=== PATIENT | male | born 1975 | race Caucasian/White ===

== ENCOUNTER 2021-04-18 10:22 | Outpatient (REF) | payer OTHER, SELFPAY ==
[2021-04-18 10:27] LABS: MANUAL DIFF FLAG NO
[2021-04-18 10:43] LABS: Basophils Percent Auto 0.5 % (0-2); Eosinophils Absolute Auto 0.1 X10*3/uL (0.0-0.4); Eosinophils Percent Auto 2.1 % (0-4); Hematocrit 41.9 % (42-52); Hemoglobin 14.5 g/dl (14.0-18.0); Imm Gran Abs Auto 0.03 X10*3/uL (0.00-0.03); Imm Gran Pct Auto 0.5 % (0.0-0.4); Lymphocytes Absolute Auto 1.9 X10*3/uL (1.2-4.9); Lymphocytes Percent Auto 31.2 % (20-40); Mean Corpuscular HGB Conc 34.6 g/dl (31.0-36.0); Mean Corpuscular Hemoglobin 32.2 pg (27.0-33.0); Mean Corpuscular Volume 93.1 fL (80-98); Mean Platelet Volume 9.8 fL (9.4-12.4); Monocytes Absolute Auto 0.6 X10*3/uL (0.1-1.2); Monocytes Percent Auto 9.6 % (2-11); Neutrophils Absolute Auto 3.4 X10*3/uL (2.0-8.3); Neutrophils Percent Auto 56.1 % (45-73); Platelet Count 222 X10*3/uL (160-400); White Blood Count 6.1 X10*3/uL (4.8-10.8)
[2021-04-18 10:59] LABS: Glucose Urine UA NEG (NEG); Leukocyte Esterase Urine NEG (NEG); Nitrite Urine NEG (NEG); Urine Blood NEG (NEG); Urine Ketones NEG (NEG); Urine Protein NEG (NEG-TRACE)
[2021-04-18 11:12] LABS: Appearance Urine CLEAR; Color Urine YELLOW
[2021-04-18 12:01] LABS: Alanine Aminotransferase 18 U/L (0-40); Albumin Level 4.2 g/dL (3.5-5.0); Alkaline Phosphatase 57 U/L (39-117); Anion Gap 13 (12-20); Aspartate Amino Transferase 22 U/L (5-37); Bilirubin Total 1.3 mg/dL (0.0-1.0); Blood Urea Nitrogen 9 mg/dL (9-16); Calcium 9.3 mg/dL (8.4-10.2); Carbon Dioxide 27 mmol/L (22-29); Chloride 104 mmol/L (96-108); Cholesterol 226 mg/dL; Estimated Glomerular Filt Rate > 60; Glucose Fasting 81 mg/dL (60-99); HDL Cholesterol 90 mg/dL; LDL Cholesterol Calculated 105 mg/dl; Potassium 3.7 mmol/L (3.3-5.1); Sodium 140 mmol/L (135-145); Total Protein 7.5 g/dL (6.5-8.0); Triglycerides 155 mg/dL
[2021-04-18 12:22] LABS: PSA,Total (Free>4and<10) 0.58 ng/mL (0.00-4.00)
== END 2021-04-18 10:23 | disposition home or self-care (01) ==
LOC: HO.LNP 10:22
PROVIDERS: Visit Provider Internal Medicine
DX: Z00.00 Encounter for general adult medical examination without abnormal findings (principal); E78.00 Pure hypercholesterolemia, unspecified; F90.2 Attention-deficit hyperactivity disorder, combined type; Z12.5 Encounter for screening for malignant neoplasm of prostate
CPT/HCPCS: 80053; 80061; 81003; 84153; 85025

== ENCOUNTER 2021-06-12 12:42 | Day surgery (SDC) | payer OTHER, SELFPAY ==
--- NOTE | 2021-06-11 14:07 | HO.ANESPROP2 ---
HPI - Anesthesia Eval Consult details Narrative: 45yo M for Colonoscopy FORMERLY [facility] Past Medical History Medical History Irregular heart beat Surgical History Surgical History H/O bilateral inguinal hernia repair H/O wisdom tooth extraction Hx of tympanostomy tubes Social History Social History Patient Tobacco Use Status: Former Tobacco user Use of substances other than those prescribed or required for medical reasons: No Are you DNR?: No Advance Directives: No Advance Directives Information Provided: Yes Meds Allergies Allergy/AdvReac Type Severity Reaction Status Date / Time No Known Allergies Allergy Verified 06/12/21 13:21 Exam Exam Date and Time: June 11, 2021 1407 Pertinent Lab Results Pertinent Lab Results: Laboratory Tests 04/18/21 04/18/21 07:20 07:20 WBC 6.1 Hgb 14.5 Hct 41.9 L Plt Count 222 Sodium 140 Potassium 3.7 Chloride 104 Carbon Dioxide 27 BUN 9 Creatinine 0.99 Assessment and Plan Assessment Anesthesia Assessment: Chart Reviewed
[2021-06-12 13:16] VITALS: BP 123/77; PULSE 86; RESP 20; TEMP 36.7; BMI 26.6
[2021-06-12] MEDS: Lactated Ringers 1,000 ML 100 ML IVCONT (13:28)
--- NOTE | 2021-06-12 13:52 | MHC.SHP ---
Pre-Procedural Eval Section A Date of Service: 06/12/21 The patient is an INPATIENT: No Changes since office visit: No Cold of Flu in the past 2 weeks, No New Medical Problems, No Changes in Medication and No Patient answered all questions The History & Physical has been completed within 30 days and I have reviewed it.: Yes Section B Chief Complaint: change in bowel Allergies: Allergies Allergy/AdvReac Type Severity Reaction Status Date / Time No Known Allergies Allergy Verified 06/12/21 13:21 Plan I have reviewed the history and physical and performed a pertinent physical examination on my patient. No changes have occurred unless specified.
--- NOTE | 2021-06-12 14:16 | P.BOP_ITS ---
Brief Operative Note Date of Service: 06/12/21 Pre-op diagnosis: abnormal findings in stool Post-op diagnosis: same Procedure: colonoscopy Surgeon: Erwin Pichardo Anesthesia: MAC Was an Mechanical Applications Engineer used for this Procedure?: No Estimated blood loss (mL): 2 Pathology: other (sigmoid biopsies) Condition: stable Disposition: PACU
[2021-06-12 14:18] VITALS: BP 87/52; PULSE 74; RESP 18; TEMP 36.2; O2SAT 97
[2021-06-12 14:33] VITALS: BP 95/59; PULSE 66; RESP 18; O2SAT 97
[2021-06-12 14:48] VITALS: BP 97/69; PULSE 63; RESP 18; TEMP 36.2; O2SAT 99
--- NOTE | 2021-06-14 18:55 | OP_ITS ---
SURGEON: Erwin Pichardo MD INDICATIONS: Abnormal findings in stool and change in bowel habits. PREOPERATIVE DIAGNOSIS: POSTOPERATIVE DIAGNOSIS: PROCEDURE PERFORMED: Colonoscopy to the terminal ileum with biopsy. ESTIMATED BLOOD LOSS: COMPLICATIONS: ANESTHESIA: ASSISTANTS: SPECIMENS: MEDICATIONS: Monitored anesthesia care. DESCRIPTION OF PROCEDURE: History and physical performed. The risks and benefits of the procedure were explained to the patient. Informed consent was obtained. The patient was placed in the left lateral decubitus position. A digital rectal exam was performed and was found to be normal. The Olympus pediatric video colonoscope was introduced into the rectum and advanced to the cecum without difficulty. The cecum was identified by transillumination, palpation, and identification of ileocecal valve. Examination was performed and the scope was removed. He tolerated the procedure well and was taken to recovery area in stable condition. FINDINGS: The terminal ileum was examined and appeared normal. The visualized colonic mucosa was normal. The quality of the prep was good. No polyps were identified. Retroflexed examination showed small internal hemorrhoids. Random sigmoid biopsies were obtained to evaluate for any evidence of microscopic colitis. IMPRESSION: Normal colonoscopy. RECOMMENDATIONS: 1. Follow up the biopsy results. 2. Repeat colonoscopy is recommended in 10 years for average risk individuals. MD ELODIA Lebron/OLIMPIA / [id number]
== END 2021-06-12 15:18 | disposition home or self-care (01) ==
PROVIDERS: PCP Internal Medicine; Visit Provider Internal Medicine Gastroenterology
PROC: 0DJD8ZZ Inspection of Lower Intestinal Tract, Via Natural or Artificial Opening Endoscopic (ICD-10-PCS; CPT 45378; principal; 2021-06-12 13:50)
DX: R19.5 Other fecal abnormalities (principal); R19.4 Change in bowel habit; K64.8 Other hemorrhoids; Z79.82 Long term (current) use of aspirin
CPT/HCPCS: 45380; 88305

== ENCOUNTER 2022-04-17 11:03 | Outpatient (REF) | payer OTHER, SELFPAY ==
[2022-04-17 11:09] LABS: MANUAL DIFF FLAG NO
[2022-04-17 11:20] LABS: Basophils Percent Auto 0.9 % (0-2); Eosinophils Absolute Auto 0.1 X10*3/uL (0.0-0.4); Eosinophils Percent Auto 2.6 % (0-4); Hematocrit 40.6 % (42.0-52.0); Hemoglobin 14.1 g/dl (14.0-18.0); Imm Gran Abs Auto 0.03 X10*3/uL (0.00-0.03); Imm Gran Pct Auto 0.6 % (0.0-0.4); Lymphocytes Absolute Auto 1.7 X10*3/uL (1.2-4.9); Lymphocytes Percent Auto 37.4 % (20-40); Mean Corpuscular HGB Conc 34.7 g/dl (31.0-36.0); Mean Corpuscular Volume 92.1 fL (80.0-98.0); Monocytes Absolute Auto 0.6 X10*3/uL (0.1-1.2); Monocytes Percent Auto 11.9 % (2-11); Neutrophils Absolute Auto 2.2 x10*3/uL (2.0-8.3); Neutrophils Percent Auto 46.6 % (45-73); Platelet Count 208 X10*3/uL (160-400); Red Blood Count 4.41 X10*6/uL (4.60-5.80); Red Cell Distribution Width 12.3 % (11.0-16.0); White Blood Count 4.6 X10*3/uL (4.8-10.8)
[2022-04-17 11:22] LABS: Appearance Urine CLEAR; Color Urine YELLOW; Glucose Urine UA NEG (NEG); Leukocyte Esterase Urine NEG (NEG); Nitrite Urine NEG (NEG); Urine Blood NEG (NEG); Urine Ketones NEG (NEG); Urine Protein NEG (NEG-TRACE)
[2022-04-17 11:38] LABS: Alanine Aminotransferase 19 U/L (0-40); Albumin Level 4.4 g/dL (3.5-5.0); Alkaline Phosphatase 59 U/L (39-117); Anion Gap 13 (12-20); Aspartate Amino Transferase 20 U/L (5-37); Bilirubin Total 0.8 mg/dL (0.0-1.0); Blood Urea Nitrogen 16 mg/dL (9-16); Calcium 8.7 mg/dL (8.4-10.2); Carbon Dioxide 26 mmol/L (22-29); Chloride 106 mmol/L (96-108); Cholesterol 210 mg/dL; Estimated Glomerular Filt Rate > 60; Glucose Fasting 88 mg/dL (60-99); HDL Cholesterol 70 mg/dL; LDL Cholesterol Calculated 130 mg/dl; Potassium 4.5 mmol/L (3.3-5.1); Sodium 140 mmol/L (135-145); Total Protein 7.4 g/dL (6.5-8.0); Triglycerides 53 mg/dL
[2022-04-17 12:00] LABS: PSA,Total (Free>4and<10) 0.59 ng/mL (0.00-4.00)
[2022-04-17 12:27] LABS: RBC Urine 0-2 /HPF (0); WBC Urine 0-2 /HPF (0-4)
[2022-04-17 12:28] LABS: Bacteria Urine TRACE /LPF
== END 2022-04-17 11:04 | disposition home or self-care (01) ==
LOC: HO.LNP 11:03
PROVIDERS: Visit Provider Internal Medicine
DX: Z00.00 Encounter for general adult medical examination without abnormal findings (principal); Z12.5 Encounter for screening for malignant neoplasm of prostate; E78.00 Pure hypercholesterolemia, unspecified
CPT/HCPCS: 80053; 80061; 81001; 84153; 85025

== ENCOUNTER 2023-04-23 11:36 | Outpatient (REF) | payer OTHER, SELFPAY ==
[2023-04-23 11:44] LABS: MANUAL DIFF FLAG NO
[2023-04-23 12:23] LABS: Basophils Percent Auto 0.7 % (0-2); Eosinophils Absolute Auto 0.1 X10*3/uL (0.0-0.4); Eosinophils Percent Auto 2.4 % (0-4); Hematocrit 42.6 % (42.0-52.0); Hemoglobin 14.6 g/dl (14.0-18.0); Imm Gran Abs Auto 0.04 X10*3/uL (0.00-0.03); Imm Gran Pct Auto 0.7 % (0.0-0.4); Lymphocytes Absolute Auto 2.2 X10*3/uL (1.2-4.9); Lymphocytes Percent Auto 38.9 % (20-40); Mean Corpuscular HGB Conc 34.3 g/dl (31.0-36.0); Mean Corpuscular Hemoglobin 31.6 pg (27.0-33.0); Mean Corpuscular Volume 92.2 fL (80.0-98.0); Monocytes Absolute Auto 0.6 X10*3/uL (0.1-1.2); Neutrophils Absolute Auto 2.6 x10*3/uL (2.0-8.3); Neutrophils Percent Auto 47.3 % (45-73); Platelet Count 222 X10*3/uL (160-400); Red Blood Count 4.62 X10*6/uL (4.60-5.80); Red Cell Distribution Width 12.3 % (11.0-16.0); White Blood Count 5.5 X10*3/uL (4.8-10.8)
[2023-04-23 12:26] LABS: Appearance Urine Clear; Color Urine Yellow; Glucose Urine UA Negative (Negative); Leukocyte Esterase Urine Negative (Negative); Nitrite Urine Negative (Negative); PH 5.5 (5.0-9.0); Urine Blood Negative (Negative); Urine Ketones Negative (Negative); Urine Protein Negative (Neg-Trace)
[2023-04-23 12:28] LABS: Bacteria Urine None Seen (None Seen); Hyaline Casts Urine 0-2 /LPF (0-2); RBC Urine 0-2 /HPF (0-2); Squamous Epithelial Cell Urine 0-2 /HPF (0-2); WBC Urine 0-5 /HPF (0-5)
[2023-04-23 15:35] LABS: PSA,Total (Free>4and<10) 0.52 ng/mL (0.00-4.00)
[2023-04-23 21:28] LABS: Alanine Aminotransferase 17 U/L (0-40); Albumin Level 4.2 g/dL (3.5-5.0); Alkaline Phosphatase 53 U/L (39-117); Anion Gap 17 (12-20); Aspartate Amino Transferase 20 U/L (5-37); Bilirubin Total 0.8 mg/dL (0.0-1.0); Blood Urea Nitrogen 14 mg/dL (9-16); Calcium 9.6 mg/dL (8.4-10.2); Carbon Dioxide 25 mmol/L (22-29); Chloride 104 mmol/L (96-108); Cholesterol 212 mg/dL; Estimated Glomerular Filt Rate > 60; Glucose Fasting 81 mg/dL (60-99); HDL Cholesterol 67 mg/dL; LDL Cholesterol Calculated 130 mg/dl; Potassium 4.1 mmol/L (3.3-5.1); Sodium 142 mmol/L (135-145); Total Protein 7.2 g/dL (6.5-8.0); Triglycerides 78 mg/dL
== END 2023-04-23 11:37 | disposition home or self-care (01) ==
LOC: HO.LNP 11:36
PROVIDERS: Visit Provider Internal Medicine
DX: Z00.00 Encounter for general adult medical examination without abnormal findings (principal); E78.00 Pure hypercholesterolemia, unspecified; Z12.5 Encounter for screening for malignant neoplasm of prostate
CPT/HCPCS: 80053; 80061; 81001; 84153; 85025

== ENCOUNTER 2025-04-21 09:52 | Outpatient (REF) | payer OTHER, SELFPAY ==
--- OUTSIDE RECORDS SUMMARY | 2024-04-26 04:45 | XMS_ITS ---
Author Organization Nghia Salazar MD Address [address] [place] [phone] Care Team Providers Care Reading Teacher Name Role Phone Nghia Salazar Primary Care Provider [phone] Allergies No Known Allergies REASON FOR VISIT [...] Location Date Provider Diagnosis Nghia Salazar MD [address] [place] [address] Drive [address] [place] [phone] 04/26/2024 Nghia Salazar Insect bite (nonvenomous) of [...] site Next Appt Details Provider Name:Nghia boston, 04/27/2025 03:30:00 PM, [address] [place] [address] Drive, [address], [place], [place], [phone], Progress Notes * David GALINDO ADOB: 6 (48 yo M)Acc No.[id number]:04/26/2024 Patient: David Robertson Provider: Noris Salazar MD :1975 A ge:48 Y S ex:Male Date:04/26/2024 Address:[address] [place] [address], [id number] Subjective: * Chief Complaints: * ? tick [...] 0 04/26/2024 Generated for Priyanka downs/Anurag/Roxaneitting on: 0 04/21/2025 10:06 AM EDT History and Physical Notes * [...]
[2025-04-21 09:55] LABS: MANUAL DIFF FLAG NO
--- OUTSIDE RECORDS SUMMARY | 2025-04-21 10:06 | XMS_ITS | Referral Summary ---
Author Organization [facility] Address [address] [place] [address] Care Team Providers Care Auditor/Quality Name Role Phone Nghia Salazar Primary Care Provider [phone] Allergies No known active allergies Medications No known medications Active Problems Problem Noted Date Diagnosed Date Abnormal feces 06/19/2022 Change in bowel habit 06/19/2022 Left groin pain 08/27/2020 Assessment & Plan (04/14/2023 11:08 AM EDT): Abdomen is still having some left groin pain. His symptoms are mostly with lifting. He is good to cut back on the Aleve as he has done faithfully for 3 weeks now. He can use it every other day and then as needed. He should still do ice packs to the area if that helps with some of the symptoms. We would like him to try a course of physical therapy it has been 3 years since his last sessions of physical therapy. We will focus on core strengthening and mobility. We will try that for 6 or 8 weeks and then have him come back into clinic to visit with Dr. Chong in person for an exam. David and Dr. Chong are in agreement with this plan all of his questions were answered today. Assessment & Plan (03/17/2023 1:11 PM EDT): Abdomen is developed a recrudescence of some left groin pain. He was seen and examined by both myself and Dr. Chong today. Dr. Chong personally reviewed the MRI that was done and we will scan and a copy of that report. Dr. Chong feels that he may have pulled on some of the scar tissue and has some inflammation in that area. He is recommending a course of Aleve anti-inflammatory 1 in the morning and 1 at night for the next 2 to 3 weeks. He should have food in his stomach when he takes that medication. We will follow-up in a few weeks just to see where his symptoms are. Dr. Chong does not feel any recurrence of the hernia feels that the area is very solid. If he is doing well at our next telehealth visit we will likely start to increase his activity but he should try to stay away from tweaking that area. He can do activities that do not cause him any pain but should avoid things that cause him pain and discomfort such as heavy lifting. Plan: 2 to 3-week course of Aleve twice a day and a follow-up telehealth appointment in about 3 weeks. Resolved Problems Problem Noted Date Diagnosed Date Resolved Date Unilateral recurrent inguina l hernia without obstruction or gangrene 06/12/2022 07/15/2022 Non-recurrent bilateral ingu inal hernia without obstruction or gangrene 06/04/2020 07/24/20 Social History Tobacco Use Types Packs/Day Years Used Date Smoking Tobacco: Former Cigarettes 1 0.5 0 12/27/1999 - 06/26/2000 Smokeless Tobacco: Former Chew Tobacco Cessation:Counseling Given: Not Answered Comments:chews tobacco 3 x daily currently Alcohol Use Standard Drinks/Week Comments Yes 7 (1 standard drink = 0.6 oz pur e alcohol) Sex and Gender Information Value Date Recorded Sex Assigned at Male 06/10/2022 12:22 PM EDT Legal Sex Male 11:26 AM EDT Gender Identity Male 06/10/2022 12:22 PM EDT Sexual Orientation Straight 06/10/2022 12 :22 PM EDT Last Filed Vital Signs Vital Sign Reading Time Taken Comments Blood Pressure 124/80 03/17/2023 12:02 PM EDT Pulse 90 03/17/2023 12:02 PM EDT Temperature 36.7 C (98.1 F) 07/09/2020 11:00 AM EDT Respiratory Rate 15 07/09/2020 12:30 PM EDT Oxygen Saturation 100% 07/09/2020 12:30 PM EDT Inhaled Oxygen Concentration - - Weight 74.8 kg (165 lb) 03/17/2023 12:02 PM EDT Height 167.6 cm (5' 6 ) 03/17/2023 12:02 PM EDT Body Mass Index 26.63 03/17/2023 12:02 PM EDT Plan of Treatment Not on file Medical Devices Implanted Type Area Parts Counter Salesperson Device Identifier Shelf Expiration Date Model / Serial / Lot Mesh Inguinal Hernia Left Large [id number] - [id number] Implanted:Qty: 1 on 07/09/2020 by Reg Chong MD at [facility] Mesh Left: Inguinal [employer] 05/01/2024 [id number] / / [id number] Mesh Inguinal Hernia Right Large [id number] - [id number] Implanted:Qty: 1 on 07/09/2020 by Reg Chong MD at [facility] Mesh Right: Inguinal [employer] 12/02/2024 [id number] / / [id number] Insurance [facility] Advance Directives * Full Code (Latest Code Status on File) Date Activated Date Inactivated Comments 07/09/2020 8:53 AM 07/09/2020 4:49 PM Care Teams Auditor/Quality Relationship Specialty Start Date End Date Nghia Salazar [address] [place] [address] [place] [id number] PCP - General 04/10/20
--- OUTSIDE RECORDS SUMMARY | 2025-04-21 10:07 | XMS_ITS | Patient Health Record ---
Author Organization [facility] Address [address] [place] [address] Care Team Providers Care Paper Supervisor Name Role Phone Nghia Salazar MD Primary Care Provider Erwin Arciniega Jr Allergies No Known Allergies Reason For Referral No Information Medications Medication SIG (Take, Route, Frequency, Duration) Notes Start Date End Date Status Paxil Active MiraLax (colon prep) 17 GM/SCOOP mixed with Gatorade or Crystal Light Orally begin at 5:00 p.m. the day before the procedure for 1 day 06/05/2021 Active Aspirin Active Immunizations Vaccine Route Administration Date Status Comme nts Influenza Unknown 06/05/2021 Refused Social History Tobacco Use: Social History Observation Description Date Details (start date - stop date) Former Smoker NA - NA Tobacco Use/Smoking Question Answer Notes Patient is a former smoker How long has it been since you last smoked? > 10 years Alcohol Screen Question Answer Notes Did you have a drink contain ing alcohol in the past year? Yes How often did you have a dri nk containing alcohol in the past year? 4 or more times a week (4 points) How many drinks did you have on a typical day when you were drinking in the past year? 5 or 6 drinks (2 points) Points 6 Interpretation Positive Problems Problem Type SNOMED Code ICD Code Onset Dates Problem Status W/U Status Risk Notes Problem 836128401 Change in bowel habits (R19.4) Active confirmed Problem 980236158 Abnormal findings in stool (R19.5) Active confirmed Plan Of Treatment Future Test Test Name Order Date COLONOSCOPY 06/05/2021 Insurance Providers Payer Name Payer Address Payer Phone Subscriber Number Group Number Insured Name Patient Relationship to Insured Coverage Start Date Coverage End Date [facility] [employer] [address] [place] [phone] [id number] ODOM Self - patient is the insured Medical (General) History Medical History History ICD Code irregular heart beat Denies OK,DM,CVA,Lung disease,renal dise ase Surgical History Surgery Date(Month/Year) Bilateral inguinal hernia repairs, lapar oscopic wisdom teeth extraction Tympanostomy tubes
[2025-04-21 10:23] LABS: Appearance Urine Clear; Glucose Urine UA Negative (Negative); PH 7.5 (5.0-9.0); Specific Gravity - Urine 1.010 (1.005-1.025)
[2025-04-21 10:26] LABS: Hematocrit 40.4 % (42.0-52.0); Hemoglobin 14.4 g/dl (14.0-18.0); Imm Gran Abs Auto 0.02 X10*3/uL (0.00-0.03); Imm Gran Pct Auto 0.4 % (0.0-0.4); Lymphocytes Absolute Auto 2.2 X10*3/uL (1.2-4.9); Mean Corpuscular HGB Conc 35.6 g/dl (31.0-36.0); Mean Corpuscular Hemoglobin 31.9 pg (27.0-33.0); Mean Corpuscular Volume 89.4 fL (80.0-98.0); NRBC Abs Auto 0.000 X10*3/uL (0.0-0.012); NRBC Pct Auto 0.0 /100WBC (0.0-0.2); Platelet Count 223 X10*3/uL (160-400); Red Blood Count 4.52 X10*6/uL (4.60-5.80); White Blood Count 5.2 X10*3/uL (4.8-10.8)
[2025-04-21 10:58] LABS: Alanine Aminotransferase 31 U/L (0-40); Albumin Level 4.4 g/dL (3.5-5.0); Alkaline Phosphatase 66 U/L (39-117); Anion Gap 11 (12-20); Aspartate Amino Transferase 30 U/L (5-37); Blood Urea Nitrogen 18 mg/dL (9-16); Calcium 9.1 mg/dL (8.4-10.2); Carbon Dioxide 29 mmol/L (22-29); Chloride 105 mmol/L (96-108); Cholesterol 197 mg/dL (<200); Estimated Glomerular Filt Rate > 60; HDL Cholesterol 64 mg/dL (>40); Potassium 4.2 mmol/L (3.3-5.1); Sodium 141 mmol/L (135-145); Total Protein 7.3 g/dL (6.5-8.0); Triglycerides 64 mg/dL (<150)
[2025-04-21 11:01] LABS: PSA,Total (Free>4and<10) 0.95 ng/mL (0.00-4.00)
== END 2025-04-21 09:53 | disposition home or self-care (01) ==
LOC: HO.LNP 09:52
PROVIDERS: Visit Provider Internal Medicine
DX: Z00.00 Encounter for general adult medical examination without abnormal findings (principal); E78.00 Pure hypercholesterolemia, unspecified
CPT/HCPCS: 80053; 80061; 81001; 84153; 85025

== ENCOUNTER 2025-06-27 09:49 | Outpatient (REF) | payer OTHER, SELFPAY ==
--- OUTSIDE RECORDS SUMMARY | 2024-04-26 04:45 | XMS_ITS ---
Author Organization Nghia Salazar MD Address [address] [place] [phone] Care Team Providers Care Driver Examiner Name Role Phone Nghia Salazar Primary Care Provider [phone] Allergies No Known Allergies REASON FOR VISIT ? tick bite left upper arm Medications Medication SIG (Take, Route, Frequency, Duration) Notes Start Date End Date Status PARoxetine HCl 20 MG TAKE 1 TABLET BY MO UT EVERY DAY IN THE MORNING for 90 Not-Taking Concerta 18 MG 1or 2 tablet in the morning Orally Once a day for 30 days 07/25/2021 Not-Taking cloNIDine HCl 0.1 MG 1 tablet Orally Onc e a day for 90 Not-Taking Ibuprofen 800 MG TAKE 1 TABLET BY CHELSI TH THREE TIMES A DAY WITH FOOD OR MILK for 30 Not-Taking Preparation H 0.25-3-85.5 % Rectal Not-Taking Doxycycline Hyclate 100 MG 1 capsule Orally Twice a day for 10 day(s) 04/26/2024 Active Triamcinolone Acetonide 0.5 % 1 application Externally Once a day for 30 days 01/25/2021 Not-Taking Vital Signs Blood pressure systolic 104 mm Hg 04/26/20 24 Blood pressure diastolic 70 mm Hg 024 Height 66 in 04/26/2024 Weight 171 lbs 04/26/2024 BMI 27.60 kg/m2 04/26/2024 Encounters Encounter Location Date Provider Diagnosis Nghia Salazar MD [address] [place] [address] [place] [phone] 04/26/2024 Nghia Salazar Insect bite (nonvenomous) of left upper arm, initial encounter S40.862A and Bitten or stung by nonvenomous insect and other nonvenomous arthropods, initial encounter W57.XXXA Assessments Encounter Date Diagnosis (ICD Code) Assessment Notes Treatment Notes Treatment Clinical Notes Section Notes 04/26/2024 Insect bite (nonvenomous) of left upper arm, initial encounter (ICD-10 - S40.862A) patient verbalized understanding of medication nd direction for use 04/26/2024 Bitten or stung by nonvenomous insect and other nonvenomous arthropods, initial encounter (ICD-10 - W57.XXXA) will continue to monitor site Plan Of Treatment Medication Medication Name Sig Start Date Stop Date Notes Doxycycline Hyclate 100 MG 1 capsule Ora lly Twice a day for 10 day(s) 04/26/2024 Treatment Notes Assessment Notes Insect bite (nonvenomous) of left upper arm, initial encounter patient verbalized understanding of medication nd direction for use Bitten or stung by nonvenomo us insect and other nonvenomous arthropods, initial encounter will continue to monitor site Next Appt Details Provider Name:Nghia boston, 04/24/2026 07:00:00 AM, [address] [place] [address], Suite [facility], [place], [place], [phone], Provider Name:Nghia boston, 05/01/2026 03:30:00 PM, [address] [place] [address], [place] [address], [place], [place], [phone], Progress Notes * David GALINDO ADOB: 6 (48 yo M)Acc No.[id number]:04/26/2024 Patient: David Robertson Provider: Noris Salazar MD :1975 A ge:48 Y S ex:Male Date:04/26/2024 Address:[address] [place] [address], [id number] Subjective: * Chief Complaints: * ? tick bite left upper arm * HPI: S ymptom(s): patient is a 48 yo male here with complaint of tick bite left upper arm, got lesion yesterday. * ROS: G eneral/Constitutional: Denies C hills. D enies F atigue. D enies F ever. D enies H eadache. E NT: Patient denies d ecreased sense of smell, any loss of taste, sore throat. D enies S ore throat. R espiratory: Denies C ough. D enies S hortness of breath at rest. D enies S hortness of breath with exertion. G astrointestinal: Denies D iarrhea. D enies N ausea. M usculoskeletal: Patient denies m uscle aches. P eripheral Vascular: Patient denies r ed and blue toes. * Medical History: * Surgical History: * Hospitalization/Major Diagno stic Procedure: * Medications: N ot-Taking/PRNTriamcinolone Acetonide 0.5 % Cream 1 application Externally Once a dayPARoxetine HCl 20 MG Tablet TAKE 1 TABLET BY MOUTH EVERY DAY IN THE MORNING Concerta 18 MG Tablet Extended Release 1or 2 tablet in the morning Orally Once a daycloNIDine HCl 0.1 MG Tablet 1 tablet Orally Once a dayIbuprofen 800 MG Tablet TAKE 1 TABLET BY MOUTH THREE TIMES A DAY WITH FOOD OR MILK Preparation H 0.25-3-85.5 % Suppository Rectal Medication List reviewed and reconciled with the patientNot-Taking/PRN Triamcinolone Acetonide 0.5 % Cream 1 application Externally Once a dayNot-Taking/PRN PARoxetine HCl 20 MG Tablet TAKE 1 TABLET BY MOUTH EVERY DAY IN THE MORNING Not-Taking/PRN Concerta 18 MG Tablet Extended Release 1or 2 tablet in the morning Orally Once a dayNot-Taking/PRN cloNIDine HCl 0.1 MG Tablet 1 tablet Orally Once a dayNot-Taking/PRN Ibuprofen 800 MG Tablet TAKE 1 TABLET BY MOUTH THREE TIMES A DAY WITH FOOD OR MILK Not-Taking/PRN Preparation H 0.25-3-85.5 % Suppository Rectal Medication List reviewed and reconciled with the patient * Allergies: N .K.D.A.yes[Allergies Verified] Objective: * Vitals: H t: 66, Wt:171, BMI:27.60, BP:104/70. * Examination: G eneral Examination: GENERAL APPEARANCE: alert, well hydrated, in no distress . SKIN: abnormal with indurated area about 3 inches in diameter and erythematous area about 4 inches. Assessment: * Assessment: 1. I nsect bite (nonvenomous) of left upper arm, initial encounter - S40.862A (Primary) 2 .?Bitten or stung by nonvenomous insect and other nonvenomous arthropods, initial encounter - W57.XXXA Plan: * Treatment: 2. B itten or stung by nonvenomous insect and other nonvenomous arthropods, initial encounter Notes: will continue to monitor site. * Procedure Codes: * * Sign off status: Completed true * Provider: Noris Salazar MD Date: 0 04/26/2024 Generated for Priyanka downs/Anurag/Roxaneitting on: 06/27/2025 11:52 AM EDT History and Physical Notes * HPI (History of Present Illness) Category Sub-Category Detail Notes Category Not es Symptom(s) patient is a 48 yo male here with complaint of tick bite left upper arm, got lesion yesterday Examination Category Sub-Category Detail Notes Category Not es General Examination GENERAL APPEARANCE: alert, w ell hydrated, in no distress SKIN: abnormal with indura hansel area about 3 inches in diameter and erythematous area about 4 inches
--- OUTSIDE RECORDS SUMMARY | 2025-03-14 04:58 | XMS_ITS ---
Author Organization Nghia Salazar MD Address [address] [place] [phone] Care Team Providers Care Air Conditioning Equipment Mechanic Name Role Phone MartinDorethan Primary Care Provider REASON FOR VISIT Needs appointment Encounters Encounter Location Date Provider Diagnosis Nghia Salazar MD [address] [facility] [address] [place] [phone] 03/14/2025 Nghia Salazar Plan Of Treatment Next Appt Details Provider Name:Nghia boston, 04/24/2026 07:00:00 AM, [address] [place] [address], [place] [address], [place], [place], [phone], Provider Name:Nghia boston, 05/01/2026 03:30:00 PM, [address] [place] [address], [phone], Progress Notes * David GALINDO ADOB: 6 (49 yo M)Acc No.[id number]:03/14/2025 Patient: David TALBERT :1975 A ge:49 Y S ex:Male Address:[address] [place] [id number] * true * Date: Generated for Priyanka downs/Anurag/Jose Miguelsmitting on: 0 06/27/2025 11:53 AM EDT
--- OUTSIDE RECORDS SUMMARY | 2025-04-21 04:15 | XMS_ITS ---
Author Organization Nghia Salazar MD Address [address] [place] [phone] Care Team Providers Care Data Migration Consultant Name Role Phone Nghia Salazar Primary Care Provider Results Component Value Reference Range Notes Complete Blood Count Auto Di ff Reviewed date:04/21/2025 12:43:06 PM Interpretation: Performing Lab:[facility], [address] [place] [phone] Notes/Report: White Blood Count 5.2 4.8-10.8 X10*3/uL Red Blood Count 4.52 4.60-5.80 X10*6/uL Hemoglobin 14.4 14.0-18.0 g/dl Hematocrit 40.4 42.0-52.0 % Mean Corpuscular Volume 89.4 80.0-98.0 fL Mean Corpuscular Hemoglobin 31.9 27.0-33.0 pg Mean Corpuscular HGB Conc 35.6 31.0-36.0 g/dl Red Cell Distribution Width 12.1 11.0-16.0 % Platelet Count 223 160-400 X10*3/uL Mean Platelet Volume 9.8 9.4-12.4 fL Neutrophils Percent Auto 42.3 45-73 % Imm Gran Pct Auto 0.4 0.0-0.4 % Lymphocytes Percent Auto 42.4 20-40 % Monocytes Percent Auto 10.4 2-11 % Eosinophils Percent Auto 3.3 0-4 % Basophils Percent Auto 1.2 0-2 % NRBC Pct Auto 0.0 0.0-0.2 /100WBC Neutrophils Absolute Auto 2.2 2.0-8.3 x10*3/u L Imm Gran Abs Auto 0.02 0.00-0.03 X10*3/uL Lymphocytes Absolute Auto 2.2 1.2-4.9 X10*3/u L Monocytes Absolute Auto 0.5 0.1-1.2 X10*3/uL Eosinophils Absolute Auto 0.2 0.0-0.4 X10*3/u L Basophils Absolute Auto 0.1 0.0-0.2 X10*3/uL NRBC Abs Auto 0.000 0.0-0.012 X10*3/uL Comprehensive Black. Panel Fa st Reviewed date:04/21/2025 12:43:41 PM Interpretation: Performing Lab:[facility], [address] [place] [phone] Notes/Report: Sodium 141 135-145 mmol/L Potassium 4.2 3.3-5.1 mmol/L Chloride 105 96-108 mmol/L Carbon Dioxide 29 22-29 mmol/L Anion Gap 11 12-20 Blood Urea Nitrogen 18 9-16 mg/dL Creatinine 0.89 0.5-1.4 mg/dL Estimated Glomerular Filt Rate > 60 Chronic Kidney Disease: Estimated GFR < 60 mL/min/1.73m2 Severe Kidney Disease: Estimated GFR < 15 mL/min/1.73m2 Glucose Fasting 82 60-99 mg/dL Calcium 9.1 8.4-10.2 mg/dL Bilirubin Total 0.7 0.0-1.0 mg/dL Aspartate Amino Transferase 30 5-37 U/L Alanine Aminotransferase 31 0-40 U/L Total Protein 7.3 6.5-8.0 g/dL Albumin Level 4.4 3.5-5.0 g/dL Alkaline Phosphatase 66 39-117 U/L Lipid Panel Reviewed date:04/21/2025 12:35:14 PM Interpretation: Performing Lab:[address] [phone] Notes/Report: Triglycerides 64 <150 mg/dL Desirable Triglyceride: less than 150 mg/dL Borderline High Triglyceride 150-199 mg/dL High Triglyceride: 200-499 mg/dL Very High Triglyceride: greater than or equal to 5OO mg/dL Cholesterol 197 <200 mg/dL Desirable Cholesterol: less than 200 mg/dL Borderline High Cholesterol: 200-239 mg/dL High Cholesterol: greater than 239 mg/dL LDL Cholesterol Calculated 121 <100 mg/dL Desirable LDL: less than 100 mg/dL Near Optimal/Above Optimal LDL: 110-129 mg/dL Borderline High LDL: 130-159 mg/dL High LDL: 160-189 mg/dL Very High LDL: greater than or equal to 190 mg/dL HDL Cholesterol 64 >40 mg/dL Desirable HDL: greater than 40 mg/dL Note: This HDL assay may give artificially low results in patients with liver disease. PSA,Total (Free>4and<10) Reviewed date:04/21/2025 12:35:04 PM Interpretation: Performing Lab:[address] [phone] Notes/Report: PSA,Total (Free>4and<10) 0.95 0.00-4.00 ng/mL A Free PSA was not performed: The percentage of Free PSA can be used to enhance the differentiation of prostate cancer from benign prostatic disease in subjects whose PSA levels are between 4.0 and 10.0 ng/mL. For subjects whose PSA levels are below 4.0 or above 10.0 ng/mL, the risk of prostate cancer is determined on the basis of the PSA alone. Therefore the % Free PSA is recommended only for those subjects whose PSA levels are between 4.0 and 10.0 ng/mL. PSA methodology: Tobin Alinity i Chemiluminescent Microparticle Immunoassay (CMIA) UA ClnCatch+Micro w/rflx Cul t Reviewed date:04/21/2025 12:45:10 PM Interpretation: Performing Lab:[address] [phone] Notes/Report: Urine, Clean Catch Color Urine Yellow Appearance Urine Clear PH 7.5 5.0-9.0 Glucose Urine UA Negative Negative mg/dL Urine Blood Negative Negative Specific Guy - Urine 1.010 1.005-1.025 Urine Protein Negative Neg-Trace mg/dL Urine Ketones Negative Negative mg/dL Nitrite Urine Negative Negative Leukocyte Esterase Urine Negative Negative RBC Urine 0-2 0-2 /HPF WBC Urine 0-5 0-5 /HPF Squamous Epithelial Cell Urine 0-2 0-2 /HPF Bacteria Urine None Seen None Seen Hyaline Casts Urine 0-2 0-2 /LPF REASON FOR VISIT Fasting labs Encounters Encounter Location Date Provider Diagnosis Nghia Salazar MD [address] [place] [phone] 04/21/2025 Nghia Salazar Blood tests for routine general physical examination Z00.00 and High cholesterol E78.00 Assessments Encounter Date Diagnosis (ICD Code) Assessment Notes Treatment Notes Treatment Clinical Notes Section Notes 04/21/2025 Blood tests for routine general physical examination (ICD-10 - Z00.00) 04/21/2025 High cholesterol (ICD-10 - E78.00) Plan Of Treatment Next Appt Details Provider Name:Nghia boston, 04/24/2026 07:00:00 AM, [address] [place] [address], [address], [phone], Provider Name:Nghia boston, 05/01/2026 03:30:00 PM, [address] [place] [address], [phone], Progress Notes * David GALINDO ADOB: 6 (49 yo M)Acc No.[id number]:04/21/2025 Progress Note Patient: David TALBERT Provider: Noris Salazar MD :1975 A ge:49 Y S ex:Male Date:04/21/2025 Address:[address] [place], [place] [phone] Subjective: * Chief Complaints: * 1 . Fasting labs. * Medical History: Objective: * Vitals: Assessment: * Assessment: 1. B lood tests for routine general physical examination - Z00.00 (Primary) 2 .?High cholesterol - E78.00 Plan: * Treatment: 2. H igh cholesterol L AB: Complete Blood Count Auto Diff (Collection Date & Time - 04/21/2025 08:15 AM) L AB: Comprehensive Black. Panel Fast (Collection Date & Time - 04/21/2025 08:15 AM) L AB: Lipid Panel (Collection Date & Time - 04/21/2025 08:15 AM) L AB: PSA,Total (Free>4and<10) (Collection Date & Time - 04/21/2025 08:15 AM) L AB: UA ClnCatch+Micro w/rflx Cult (Collection Date & Time - 04/21/2025 08:15 AM) * Procedure Codes: 3 6415 VENIPUNCT, ROUTINE* * * The named appointment provid er may or may not be the originator of this progress note, and it is not deemed complete until electronically signed by the appointment provider. Sign off status: Pending * Provider: Noris Salazar MD Date: 0 04/21/2025 Generated for Priyanka downs/Anurag/Roxaneitting on: 0 06/27/2025 11:53 AM EDT
--- OUTSIDE RECORDS SUMMARY | 2025-04-27 11:30 | XMS_ITS ---
Author Organization Nghia Salazar MD Address [address] [place] [phone] Care Team Providers Care Estimating Manager Name Role Phone Nghia Salazar Primary Care Provider Allergies No Known Allergies Results Component Value Reference Range Notes Occult Blood, Stool, Guaiac Reviewed date:04/27/2025 03:57:46 PM Interpretation:Negative Performing Lab: Notes/Report: Negative Occult Blood, Stool, Guaiac Neg REASON FOR VISIT ANNUAL EXAM Social History Tobacco Use: Social History Observation Description Date Details (start date - stop date) Former Smoker NA - NA Tobacco Use/Smoking Question Answer Notes Patient is a former smoker How long has it been since y ou last smoked? > 10 years Additional Findings: Tobacco Non-User Fo rmer smoker, currently using no form of tobacco AUDIT-C (Standard) Question Answer Notes Did you have a drink contain ing alcohol in the past year? Yes How often did you have a dri nk containing alcohol in the past year? 2 to 3 times a week (3 points) How many drinks did you have on a typical day when you were drinking in the past year? 1 or 2 drinks (0 point) How often did you have six o r more drinks on one occasion in the past year? Never (0 point) Points 3 Interpretation Negative Problems Problem Type SNOMED Code ICD Code Onset Dates Problem Status W/U Status Risk Notes Problem Lymphocytosis (54959428) Lymphocytosis (D72.820) Active confirmed Vital Signs Blood pressure systolic 102 mm Hg 04/27/20 25 Blood pressure diastolic 60 mm Hg 025 Height 66 in 04/27/2025 Weight 167 lbs 04/27/2025 BMI 26.95 kg/m2 04/27/2025 Encounters Encounter Location Date Provider Diagnosis Nghia Salaazr MD [address] [place], [place] [phone] 04/27/2025 Nghia Salazar Lymphocytosis D72.82 0 ; Annual physical exam Z00.00 ; High cholesterol E78.00 ; Colon cancer screening Z12.11 and Depression screening Z13.31 Assessments Encounter Date Diagnosis (ICD Code) Assessment Notes Treatment Notes Treatment Clinical Notes Section Notes 04/27/2025 Lymphocytosis (ICD-10 - D72.820) will continue to monitor, future labs ordered 04/27/2025 Annual physical exam (ICD-10 - Z00.00) labs reviewed and discussed with patient 04/27/2025 High cholesterol (ICD-10 - E78.00) not high enough to treat, will contnue to monitor 04/27/2025 Colon cancer screening (ICD-10 - Z12.11) negative guaiac 04/27/2025 Depression screening (ICD-10 - Z13.31) negative screen Plan Of Treatment Treatment Notes Assessment Notes Lymphocytosis will continue to mon itor, future labs ordered Annual physical exam labs reviewed and d iscussed with patient High cholesterol not high enough to t reat, will contnue to monitor Colon cancer screening negative guaiac Depression screening negative screen Pending Test Test Name Order Date Complete Blood Count Auto Diff 5 Next Appt Details Follow Up: 1 Year, Reason: Provider Name:Nghia boston, 04/24/2026 07:00:00 AM, [address], [address], [place], [place], [phone], Provider Name:Nghia Choard ier, 05/01/2026 03:30:00 PM, [address], [address], [place], [place], [phone], Progress Notes * David GALINDO ADOB: 6 (49 yo M)Acc No.[id number]:04/27/2025 Progress Notes Patient: David TALBERT Provider: Noris Salazar MD :1975 A ge:49 Y S ex:Male Date:04/27/2025 Address:[address] [place], [place] [id number] Subjective: * Chief Complaints: * A NNUAL EXAM * HPI: D epression Screening: PHQ-9 L ittle interest or pleasure in doing things N ot at all, F eeling down, depressed, or hopeless N ot at all, T rouble falling or staying asleep, or sleeping too much N ot at all, F eeling tired or having little energy N ot at all, P oor appetite or overeating N ot at all, F eeling bad about yourself or that you are a failure, or have let yourself or your family down N ot at all, T rouble concentrating on things, such as reading the newspaper or watching television N ot at all, M oving or speaking so slowly that other people could have noticed; or the opposite, being so fidgety or restless that you have been moving around a lot more than usual N ot at all, T houghts that you would be better off or of hurting yourself in some way N ot at all, T otal Score 0 . I nterpretation and Intervention D epression Screening Findings N egative, F ollow-Up for Depression : review of PHQ-9 found negative result, no follow-up needed. C ommunication Needs: Communication Needs D oes the patient have a hearing impairment N o, D oes the patient have a vision impairment? Y es, I f yes, what is the vision impairment? G lasses, D oes the patient have a cognition impairment? N o. F all Risk: History H ave you had any falls with injury in the past year? N o, H ave you had two or more falls in the past year? N o. S TABBY Questions: SDOH Questions I n the past year have you been worried about losing housing? N o, I n the past year have you or any family members you live with been unable to get any of the following when it was really needed? Check all that apply: N one. S ymptom(s): patient is a 49 yo male here for annual visit with review of recent labs and follow up of chronic issues h ere for yearly evaluation. doing lots of digging. feeling as good as before hernia surgery. * ROS: G eneral/Constitutional: Change in appetite d enies. C hills d enies. F ever d enies. O phthalmologic: Blurred vision d enies. D ischarge d enies. P ain d enies. E NT: Decreased hearing d enies. S ore throat d enies.?Swollen glands d enies. E ndocrine: Cold intolerance d enies. E xcessive thirst d enies. H eat intolerance d enies. W eight loss d enies. R espiratory: Cough d enies. S hortness of breath at rest d enies. S hortness of breath with exertion d enies. W heezing d enies. C ardiovascular: Chest pain at rest d enies. C hest pain with exertion?denies. I rregular heartbeat d enies. S hortness of breath d enies. ? G astrointestinal: Abdominal pain d enies. C hange in bowel habits d enies. D iarrhea d enies. N ausea d enies. R ectal bleeding d enies. V omiting d enies . G enitourinary: Blood in urine d enies. D ifficulty urinating d enies. F requent urination d enies. M usculoskeletal: Painful joints d enies. W eakness d enies. ? S kin: Dry skin d enies. I tching d enies. D enies?Mole(s), changes in moles, new moles or any lesions of concern. D enies P hotosensitivity. R robert d enies. N eurologic: Dizziness d enies. F ainting d enies. H eadache?denies. * Medical History: * Surgical History: * Hospitalization/Major Diagno stic Procedure: * Family History: F ather: alive 77 yrs, Healthy. M other: alive 76 yrs, Healthy. 1 brother(s) . . Father Healthy Mother- healthy, Denies mental health/substance abuse family history, Denies mental health/substance abuse family history, No pertinent family medical history, Denies mental health/substance abuse family history. * Social History: T obacco Use: T obacco Use/Smoking P atient is a f ormer smoker, H ow long has it been since you last smoked? > 10 years, A dditional Findings: Tobacco Non-User F ormer smoker, currently using no form of tobacco. M iscellaneous: C affeine: yes, frequency:, 3-4 cups per day. Children: no. Exercise: yes, yardwork and swimming. Home smoke detector use: yes. Marital status: single. Pets: none, 1 dog. Travel outside of the [place]: no. D rug/Alcohol: A MONICA-C (Standard) D id you have a drink containing alcohol in the past year? Y es, H ow often did you have a drink containing alcohol in the past year? 2 to 3 times a week (3 points), H ow many drinks did you have on a typical day when you were drinking in the past year? 1 or 2 drinks (0 point), H ow often did you have six or more drinks on one occasion in the past year? N ever (0 point), P oints 3 , I nterpretation N egative. * Medications: N one * Allergies: N .K.D.A.yes[Allergies Verified] Objective: * Vitals: H t: 66, Wt: 167, BMI:26.95, BP:102/60, Wt-k.75. * P ast Orders: L ab:UA ClnCatch+Micro w/rflx Cult (Order Date - 04/21/2025) (Collection Date & Time - 04/21/2025 08:15 AM) Value Reference Range Color Urine Yellow - Appearance Urine Clear - PH 7.5 5.0-9.0 - Glucose Urine UA Negative Negative - mg/dL Urine Blood Negative Negative - Specific [place] - Urine 1.010 1.005-1.025 - Urine Protein Negative Neg-Trace - mg/dL Urine Ketones Negative Negative - mg/dL Nitrite Urine Negative Negative - Leukocyte Esterase Urine Negative Negative - RBC Urine 0-2 0-2 - /HPF WBC Urine 0-5 0-5 - /HPF Squamous Epithelial Cell Urine 0-2 0-2 - /HP F Bacteria Urine None Seen None Seen - Hyaline Casts Urine 0-2 0-2 - /LPF L ab:Complete Blood Count Auto Diff (Order Date - 04/21/2025) (Collection Date & Time - 04/21/2025 08:15 AM) Value Reference Range White Blood Count 5.2 4.8-10.8 - X10*3/uL Red Blood Count 4.52 L 4.60-5.80 - X10*6/uL Hemoglobin 14.4 14.0-18.0 - g/dl Hematocrit 40.4 L 42.0-52.0 - % Mean Corpuscular Volume 89.4 80.0-98.0 - fL Mean Corpuscular Hemoglobin 31.9 27.0-33.0 - pg Mean Corpuscular HGB Conc 35.6 31.0-36.0 - g/ dl Red Cell Distribution Width 12.1 11.0-16.0 - % Platelet Count 223 160-400 - X10*3/uL Mean Platelet Volume 9.8 9.4-12.4 - fL Neutrophils Percent Auto 42.3 L 45-73 - % Imm Gran Pct Auto 0.4 0.0-0.4 - % Lymphocytes Percent Auto 42.4 H 20-40 - % Monocytes Percent Auto 10.4 2-11 - % Eosinophils Percent Auto 3.3 0-4 - % Basophils Percent Auto 1.2 0-2 - % NRBC Pct Auto 0.0 0.0-0.2 - /100WBC Neutrophils Absolute Auto 2.2 2.0-8.3 - x10* 3/uL Imm Gran Abs Auto 0.02 0.00-0.03 - X10*3/uL Lymphocytes Absolute Auto 2.2 1.2-4.9 - X10* 3/uL Monocytes Absolute Auto 0.5 0.1-1.2 - X10*3/ uL Eosinophils Absolute Auto 0.2 0.0-0.4 - X10* 3/uL Basophils Absolute Auto 0.1 0.0-0.2 - X10*3/ uL NRBC Abs Auto 0.000 0.0-0.012 - X10*3/uL L ab:Comprehensive [place]. Panel Fast (Order Date - 04/21/2025) (Collection Date & Time - 04/21/2025 08:15 AM) Value Reference Range Sodium 141 135-145 - mmol/L Bilirubin Total 0.7 0.0-1.0 - mg/dL Aspartate Amino Transferase 30 5-37 - U/L Alanine Aminotransferase 31 0-40 - U/L Total Protein 7.3 6.5-8.0 - g/dL Albumin Level 4.4 3.5-5.0 - g/dL Alkaline Phosphatase 66 39-117 - U/L Potassium 4.2 3.3-5.1 - mmol/L Chloride 105 96-108 - mmol/L Carbon Dioxide 29 22-29 - mmol/L Anion Gap 11 L 12-20 - Blood Urea Nitrogen 18 H 9-16 - mg/dL Creatinine 0.89 0.5-1.4 - mg/dL Estimated Glomerular Filt Rate > 60 - Glucose Fasting 82 60-99 - mg/dL Calcium 9.1 8.4-10.2 - mg/dL L ab:Lipid Panel (Order Date - 04/21/2025) (Collection Date & Time - 04/21/2025 08:15 AM) Value Reference Range Triglycerides 64 <150 - mg/dL Cholesterol 197 <200 - mg/dL LDL Cholesterol Calculated 121 H <100 - mg/dL HDL Cholesterol 64 >40 - mg/dL L ab:PSA,Total (Free>4and<10) (Order Date - 04/21/2025) (Collection Date & Time - 04/21/2025 08:15 AM) Value Reference Range PSA,Total (Free>4and<10) 0.95 0.00-4.00 - ng/ mL * Examination: G eneral Examination: GENERAL APPEARANCE: w ell developed, well nourished, in no acute distress. HEAD: n ormocephalic, atraumatic. EYES: p upils equal, round, reactive to light and accommodation, sclera non-icteric. EARS: n ormal. ORAL CAVITY: m ucosa moist. THROAT: c lear. NECK/THYROID: n ricky supple, full range of motion, no cervical lymphadenopathy, no bruits. SKIN: w arm and dry, no suspicious lesions. HEART: r egular rate and rhythm, S1, S2 normal, no murmurs.? LUNGS: c lear to auscultation bilaterally. ABDOMEN: s oft, nontender, nondistended, bowel sounds present, normal, no organomegaly , no masses palpable. RECTAL EXAM: n ormal tone, no external hemorrhoids, no masses palpable, prostate normal, stool guaiac negative. MALE GENITOURINARY: c ircumcised, no testicular mass, testes descended bilaterally. EXTREMITIES: n o clubbing, cyanosis, or edema. NEUROLOGIC: n onfocal, motor strength normal upper and lower extremities, sensory exam intact. Assessment: * Assessment: 1. A nnual physical exam - Z00.00 (Primary) 2 . L ymphocytosis - D72.820? 3. H igh cholesterol - E78.00 4 . C olon cancer screening - Z12.11 5 . D epression screening - Z13.31 Plan: * Treatment: 2. L ymphocytosis L AB: Complete Blood Count Auto Diff (Ordered for 06/28/2025) Notes: will continue to monitor, future labs ordered 3. H igh cholesterol Notes: not high enough to treat, will contnue to monitor 4. C olon cancer screening L AB: Occult Blood, Stool, Guaiac (Collection Date & Time - 04/27/2025) N egative Value Reference Range O ccult Blood, Stool, Guaiac Neg Notes: negative guaiac ??5.?Depression screening? Notes: negative screen?? * Procedure Codes: 8 2270 TEST FOR BLOOD, FECES * Preventive Medicine: Counseling: C are goal follow-up plan: C ounseling for abnormal BMI provided?Yes, A estelita Normal BMI Follow-up G iving encouragement to exercise. * Follow Up: 1 Year * * Sign off status: Completed true * Provider: Noris Salazar MD Date: 0 04/27/2025 Generated for Priyanka downs/Anurag/eTbraydensmitting on: 0 06/27/2025 11:52 AM EDT History and Physical Notes * HPI (History of Present Illness) Category Sub-Category Detail Notes Category Not es Symptom(s) patient is a 49 yo male here for annual visit with review of recent labs and follow up of chronic issues here for yearly evaluation. doing lots of digging. feeling as good as before hernia surgery Depression Screening PHQ-9 Little inte rest or pleasure in doing things: Not at all Feeling down, depressed, or hopeless: No t at all Trouble falling or staying asleep, or sl eeping too much: Not at all Feeling tired or having little energy: N ot at all Poor appetite or overeating: Not at all Feeling bad about yourself o r that you are a failure, or have let yourself or your family down: Not at all Trouble concentrating on thi ngs, such as reading the newspaper or watching television: Not at all Moving or speaking so slowly that other people could have noticed; or the opposite, being so fidgety or restless that you have been moving around a lot more than usual: Not at all Thoughts that you would be b cuauhtemoc off or of hurting yourself in some way: Not at all Total Score: 0 Interpretation and Intervention Depression Domonique larson Findings: Negative Follow-Up for Depression: : review of PH Q-9 found negative result, no follow-up needed SDOH Questions SDOH Questions In the past year have you been worried about losing housing?: No In the past year have you or any family members you live with been unable to get any of the following when it was really needed? Check all that apply:: None Fall Risk History Have you had any falls with injury i n the past year?: No Have you had two or more falls in the st year?: No Communication Needs Communication Needs Does the patient have a hearing impairment: No Does the patient have a vision impairmen t?: Yes If yes, what is the vision impairment?: Glasses Does the patient have a cognition impair ment?: No Examination Category Sub-Category Detail Notes Category Not es General Examination GENERAL APPEARANCE: well dev eloped, well nourished, in no acute distress HEAD: normocephalic, atrau matic EYES: pupils equal, round, reactive to light and accommodation, sclera non-icteric EARS: normal THROAT: clear NECK/THYROID: neck supple, full ra nge of motion, no cervical lymphadenopathy, no bruits HEART: regular rate and rhy thm, S1, S2 normal, no murmurs LUNGS: clear to auscultatio n bilaterally ABDOMEN: soft, nontender, non distended, bowel sounds present, normal, no organomegaly , no masses palpable NEUROLOGIC: nonfocal, motor stre ngth normal upper and lower extremities, sensory exam intact SKIN: warm and dry, no fer picious lesions EXTREMITIES: no clubbing, cyanosi s, or edema MALE GENITOURINARY: circumcised, no test icular mass, testes descended bilaterally RECTAL EXAM: normal tone, no exte rnal hemorrhoids, no masses palpable, prostate normal, stool guaiac negative ORAL CAVITY: mucosa moist
--- OUTSIDE RECORDS SUMMARY | 2025-06-27 04:00 | XMS_ITS ---
Author Organization Nghia Salazar MD Address [address] [place] [phone] Care Team Providers Care Functional Mental Disability Teacher Name Role Phone Nghia Salazar Primary Care Provider [phone] Results Component Value Reference Range Notes Complete Blood Count Auto Di ff (Not yet reviewed by provider) Interpretation: Performing Lab:[facility], [address] [place] [phone] Notes/Report: White Blood Count 5.6 4.8-10.8 X10*3/uL Red Blood Count 4.58 4.60-5.80 X10*6/uL Hemoglobin 14.6 14.0-18.0 g/dl Hematocrit 40.8 42.0-52.0 % Mean Corpuscular Volume 89.1 80.0-98.0 fL Mean Corpuscular Hemoglobin 31.9 27.0-33.0 pg Mean Corpuscular HGB Conc 35.8 31.0-36.0 g/dl Red Cell Distribution Width 11.9 11.0-16.0 % Platelet Count 229 160-400 X10*3/uL Mean Platelet Volume 9.8 9.4-12.4 fL Neutrophils Percent Auto 48.3 45-73 % Imm Gran Pct Auto 0.5 0.0-0.4 % Lymphocytes Percent Auto 39.1 20-40 % Monocytes Percent Auto 8.5 2-11 % Eosinophils Percent Auto 2.7 0-4 % Basophils Percent Auto 0.9 0-2 % NRBC Pct Auto 0.0 0.0-0.2 /100WBC Neutrophils Absolute Auto 2.7 2.0-8.3 x10*3/u L Imm Gran Abs Auto 0.03 0.00-0.03 X10*3/uL Lymphocytes Absolute Auto 2.2 1.2-4.9 X10*3/u L Monocytes Absolute Auto 0.5 0.1-1.2 X10*3/uL Eosinophils Absolute Auto 0.2 0.0-0.4 X10*3/u L Basophils Absolute Auto 0.1 0.0-0.2 X10*3/uL NRBC Abs Auto 0.000 0.0-0.012 X10*3/uL REASON FOR VISIT CBC AUTO DIFF Immunizations Vaccine Route Administration Date Status Comme nts Fluarix Quadrivalent - 150 Unknown 06/27/2025 Refused Encounters Encounter Location Date Provider Diagnosis Nghia Salazar MD [address] [place] [address] [place] [phone] 06/27/2025 Nghia Salazar Lymphocytosis D72.82 0 Assessments Encounter Date Diagnosis (ICD Code) Assessment Notes Treatment Notes Treatment Clinical Notes Section Notes 06/27/2025 Lymphocytosis (ICD-10 - D72.820) Plan Of Treatment Pending Test Test Name Order Date Complete Blood Count Auto Diff Next Appt Details Provider Name:Nghia boston, 04/24/2026 07:00:00 AM, [address] [place] [address], [address], [phone], Provider Name:Nghia boston, 05/01/2026 03:30:00 PM, [address] [place] [address], [address], [phone], Progress Notes * David GALINDO ADOB: 6 (49 yo M)Acc No.[id number]:06/27/2025 Progress Note Patient: David TALBERT Provider: Noris Salazar MD :1975 A ge:49 Y S ex:Male Date:06/27/2025 Address:[address] [place], [place] [phone] Subjective: * Chief Complaints: * 1 . CBC AUTO DIFF. * Medical History: Objective: * Vitals: Assessment: * Assessment: 1. L ymphocytosis - D72.820 Plan: * Treatment: * Immunizations: Fluarix Quadrivalent - 150 (Not administered - Refused: Patient decision) * Procedure Codes: 3 6415 VENIPUNCT, ROUTINE* * * The named appointment provid er may or may not be the originator of this progress note, and it is not deemed complete until electronically signed by the appointment provider. Sign off status: Pending * Provider: Noris Salazar MD Date: 0 06/27/2025 Generated for Priyanka downs/Anurag/Roxaneitting on: 0 06/27/2025 11:52 AM EDT
--- OUTSIDE RECORDS SUMMARY | 2025-06-27 11:52 | XMS_ITS | Clinical Summary ---
Author Organization [facility] Address [address] [place] [address] Care Team Providers Care Sugar Reprocess Operator Head Name Role Phone Nghia Salazar Primary Care Provider [phone] Allergies No known active allergies Medications No [...] hernia without obstruction or gangrene 06/04/2020 07/24/20 Family History Medical History Relation Name Comments No Known Problems Father No Known Problems Mother Relation Name Status Comments Father Alive Mother Alive Social History Tobacco Use Types Packs/Day Years [...] 03/17/2023 12:02 PM EDT Plan of Treatment Health Maintenance Due Date Last Done Comments Cologuard 1975 Colonoscopy 1975 HIV Screening 1975 Hepatitis C Screening 1975 Sigmoidoscopy 1975 Hepatitis B Vaccines (1 of 3 - 19+ 3-dose series) 1995 Colon Cancer Screening 04/22/2022 FOBT / Fit Test 04/22/2022 04/22/2021, 04/05/2019, 02/12/2018 Alcohol/Substance Use Screening 10/05/2024 Depression Screening and Follow-Up 10/05/2024 Social Drivers of Health Annual Screening 10/05/2024 COVID-19 Vaccine ( - 2023-2 5 season) 2025 Influenza Vaccine (#1) 2025 DTaP,Tdap,and Td Vaccines (3 - Td or Tdap) 02/24/2026 02/25/2016, 02/25/2016 RSV Vaccine (60+ years old a nd patients) (1 - 1-dose 75+ series) 2051 Pneumococcal Vaccine: Pediatric (0-5 Years) and At-Risk Patients (6-50 Years) Aged Out No longer eligible based on patient's age to complete this topic Medical Devices Implanted Type Area Industrial Equipment Wirer Device Identifier Shelf Expiration Date Model / Serial / Lot Mesh Inguinal Hernia Left Large [id number] - [id number] Implanted:Qty: 1 on 07/09/2020 by Reg Chong MD at [facility] Mesh Left: Inguinal [employer] 05/01/2024 [id number] / / [id number] Mesh Inguinal Hernia Right Large [id number] - [id number] Implanted:Qty: 1 on 07/09/2020 by Reg Chong MD at [facility] Mesh Right: Inguinal [employer] 12/02/2024 [id number] / / [id number] Insurance HNE Advance Directives * Full Code (Latest Code Status on File) Date Activated Date Inactivated Comments 07/09/2020 8:53 AM 07/09/2020 4:49 PM Care Teams Sugar Reprocess Operator Head Relationship Specialty Start Date End Date Nghia Salazar [address] [place] [address] [place] [address] PCP - General 04/10/20
--- OUTSIDE RECORDS SUMMARY | 2025-06-27 11:53 | XMS_ITS | Patient Health Record ---
Author Organization [facility] Address [address] [place] [address] Care Team Providers Care Airline Attendant Name Role Phone Nghia Salazar MD Primary Care Provider Erwin Arciniega Jr [phone] Allergies No Known Allergies Reason For Referral [...] Problem Status W/U Status Risk Notes Problem 231112746 Change in bowel habits (R19.4) Active confirmed Problem 291408920 Abnormal findings in stool (R19.5) Active confirmed Plan Of Treatment Future Test Test Name Order Date COLONOSCOPY 06/05/2021 Insurance Providers Payer Name Payer Address Payer Phone Subscriber Number Group Number Insured Name Patient Relationship to Insured Coverage Start Date Coverage End Date [facility] [address] [place] [phone] [id number] Self - patient is the insured Medical (General) History Medical History History ICD Code irregular heart beat Denies [place],DM,CVA,Lung disease,renal dise ase Surgical History Surgery Date(Month/Year) Bilateral inguinal hernia repairs, lapar oscopic wisdom teeth extraction Tympanostomy tubes
--- OUTSIDE RECORDS SUMMARY | 2025-06-27 11:53 | XMS_ITS | Patient Health Record ---
Author Organization Nghia Salazar MD Address [address] [place] [phone] Care Team Providers Care Wood Carver Hand Name Role Phone Nghia Salazar Primary Care Provider Allergies No Known Allergies Results Component Value Reference Range Notes Complete Blood Count Auto Di ff Reviewed date:04/21/2025 12:43:06 PM Interpretation: Performing Lab:[facility], [address] [place] [phone] Notes/Report: White Blood Count 5.2 4.8-10.8 X10*3/uL [...] 0.00-0.03 X10*3/uL Lymphocytes Absolute Auto 2.2 1.2-4.9 X10*3/ uL Monocytes Absolute Auto 0.5 0.1-1.2 X10*3/uL Eosinophils Absolute Auto 0.2 0.0-0.4 X10*3/u L Basophils Absolute Auto 0.1 0.0-0.2 X10*3/uL NRBC Abs Auto 0.000 0.0-0.012 X10*3/uL Comprehensive [place]. Panel Fa st Reviewed date:04/21/2025 12:43:41 PM Interpretation: Performing Lab:[facility], [address] [place] [phone] Notes/Report: Sodium 141 135-145 mmol/L Potassium 4.2 [...] Panel Reviewed date:04/21/2025 12:35:14 PM Interpretation: Performing Lab:[address] [phone] Notes/Report: Triglycerides 64 <150 mg/dL Desirable Triglyceride: [...] (Free>4and<10) Reviewed date:04/21/2025 12:35:04 PM Interpretation: Performing Lab:[address] [phone] Notes/Report: PSA,Total (Free>4and<10) 0.95 0.00-4.00 ng/mL A [...] t Reviewed date:04/21/2025 12:45:10 PM Interpretation: Performing Lab:[address] [phone] Notes/Report: Urine, Clean Catch Color Urine Yellow Appearance Urine Clear PH 7.5 5.0-9.0 Glucose Urine UA Negative Negative mg/dL Urine Blood Negative Negative Specific [place] - Urine 1.010 1.005-1.025 Urine Protein Negative Neg-Trace mg/dL Urine Ketones Negative Negative mg/dL Nitrite Urine Negative Negative Leukocyte Esterase Urine Negative Negative RBC Urine 0-2 0-2 /HPF WBC Urine 0-5 0-5 /HPF Squamous Epithelial Cell Urine 0-2 0-2 /HPF Bacteria Urine None Seen None Seen Hyaline Casts Urine 0-2 0-2 /LPF Complete Blood Count Auto Di ff (Not yet reviewed by provider) Interpretation: Performing Lab:[facility], [address] [place] [phone] Notes/Report: White Blood Count 5.6 4.8-10.8 X10*3/uL [...] X10*3/uL NRBC Abs Auto 0.000 0.0-0.012 X10*3/uL Occult Blood, Stool, Guaiac Reviewed date:04/27/2025 03:57:46 PM Interpretation:Negative Performing Lab: Notes/Report: Negative Occult Blood, Stool, Guaiac Neg Reason For Referral No Information Immunizations Vaccine Route Administration Date Status Comme nts TDaP IM Intramuscular 02/25/2016 Administered Tetanus Unknown 02/25/2016 Administered Flu Vaccine Unknown 11/14/2014 Refused Flu Vaccine Unknown 06/25/2015 Refused Fluarix Quadrivalent Unknown 04/05/2019 Refused Fluarix Quadrivalent Unknown 10/07/2019 Refused Covid Vaccine Unknown 04/24/2022 Refused Fluarix Quadrivalent Unknown 04/24/2022 Refused Fluarix Quadrivalent - 150 Unknown 06/27/2025 Refused Social History Tobacco Use: Social History [...] Problem Status W/U Status Risk Notes Problem 44901248 Rectal bleeding (K62.5) Active confirmed Problem Lymphocytosis (89875500) Lymphocytosis (D72.820) Active confirmed Problem 033682236194555 Chronic tension-type headache, intractable (G44.221) Active confirmed Problem 009588289 Lumbar disc disease (M51.9) Active confirmed Problem 94773550 Stress (F43.9) Active confirmed Problem 960351303 History of hemorrhoids (Z87.19) Active confirmed Problem 57213530 Attention deficit hyperactivity disorder (ADHD), combined type (F90.2) Active confirmed Problem 992618893 Hay fever (J30.1) Active confirmed Problem 42005878 High cholesterol (E78.00) Active confirmed Vital Signs Blood pressure diastolic 60 mm Hg 04/27/2025 Height 66 in 04/27/2025 Blood pressure systolic 102 mm Hg 04/27/2025 Weight 167 lbs 04/27/2025 BMI 26.95 kg/m2 04/27/2025 Encounters Encounter Location Date Provider Diagnosis Nghia Salazar MD [address] [place] [phone] 04/21/2025 Nghia Salazar Blood tests for routine general physical examination Z00.00 and High cholesterol E78.00 Nghia Salazar MD [address] [place] [address] [id number] 06/27/2025 Nghia Salazar Lymphocytosis D72.82 0 Nghia Salazar MD [address] [place] [address] [id number] 04/27/2025 Nghia Salazar Lymphocytosis D72.82 0 ; Annual physical exam Z00.00 ; High cholesterol E78.00 ; Colon cancer screening Z12.11 and Depression screening Z13.31 Nghia Salazar MD [address] [place] [address] [address] [phone] 03/14/2025 Nghia Salazar Assessments Encounter Date Diagnosis (ICD Code) Assessment Notes Treatment Notes Treatment Clinical Notes Section Notes 04/21/2025 Blood tests for routine general physical examination (ICD-10 - Z00.00) 06/27/2025 Lymphocytosis (ICD-10 - D72.820) 04/27/2025 Lymphocytosis (ICD-10 - D72.820) will continue to monitor, future labs ordered 04/27/2025 Annual physical exam (ICD-10 - Z00.00) labs reviewed and discussed with patient 04/21/2025 High cholesterol (ICD-10 - E78.00) 04/27/2025 High cholesterol (ICD-10 - E78.00) not high enough to treat, will contnue to monitor 04/27/2025 Colon cancer screening (ICD-10 - Z12.11) negative guaiac 04/27/2025 Depression screening (ICD-10 - Z13.31) negative screen Plan Of Treatment Pending Test Test Name Order Date Electrocardiogram (EKG) 02/12/2018 XR CHEST 2 VIEW PA & LAT 04/22/2021 Complete Blood Count Auto Diff 5 Next Appt Details Provider Name:Nghia Mojica Esvin ier, 04/24/2026 07:00:00 AM, [address] [facility], [address], [place], [place], [phone], Provider Name:Nghia Mojica Marquisgenia ier, 05/01/2026 03:30:00 PM, [address] [facility], [address], [place], [place], [phone], Insurance Providers Payer Name Payer Address Payer Phone Subscriber Number Group Number Insured Name Patient Relationship to Insured Coverage Start Date Coverage End Date [facility] [address] [facility] [address] [facility] [place] [place] [id number] David Galindo Self - patient is the insured Medical (General) History Medical History History ICD Code colonoscopy done 2020, due 10 years
== END 2025-06-27 09:50 | disposition home or self-care (01) ==
LOC: HO.LNP 09:49
PROVIDERS: Visit Provider Internal Medicine
DX: D72.820 Lymphocytosis (symptomatic) (principal)
CPT/HCPCS: 85025